=== PATIENT | male | born 1980 | race Two or more races ===

== ENCOUNTER 2017-03-20 08:38 | Emergency (ER) | payer MEDICAID ==
[~2017-03-20] VITALS: Ht 175.3 cm; Wt 83.0 kg
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
[2017-03-20] MEDS ORDERED: IBUPROFEN 600 MG TABLET PO ONE ×2 (09:00→09:03)
--- NOTE | 2017-03-20 09:00 | NUR ---
PT MEDICATED ORDERED.
--- NOTE | 2017-03-20 09:10 | NUR ---
PT TAKEN TO XRAY.
--- NOTE | 2017-03-20 09:51 | NUR ---
Patient discharged to home in stable condition. Written and verbal after care instructions given. Patient verbalizes understanding of instruction.
[2017-03-20 09:52] VITALS: BP 129/84
== END 2017-03-20 09:53 | disposition home or self-care (01) ==
LOC: ER 08:40
DX: S39.012A Strain of muscle, fascia and tendon of lower back, initial encounter (principal); S46.912A Strain of unspecified muscle, fascia and tendon at shoulder and upper arm level, left arm, initial encounter; S20.212A Contusion of left front wall of thorax, initial encounter; V43.52XA Car driver injured in collision with other type car in traffic accident, initial encounter; Y93.89 Activity, other specified; Y92.410 Unspecified street and highway as the place of occurrence of the external cause; Y99.8 Other external cause status
CPT/HCPCS: 71010; 72100; 73030; 99284; A4606; Z7610